=== PATIENT | male | born 1960 | race Caucasian/White ===

== ENCOUNTER 2021-10-30 05:15 | Inpatient (IN) ==
--- NOTE | 2021-10-28 09:21 | Anesthesiology Consultation ---
Date of Service October 28, 2021 Assessment & Plan (1) Encounter for pre-operative examination: - COVID screening: Per assessment on 10/22: No known COVID-19 positive contacts or current COVID-19 related symptoms. Travel screen negative. Surgeon arranging preop COVID testing (scheduled 10/28; [facility]). Awaiting results. - PCP office visit (10/21/21): "cleared for surgery" - Check BSG AM DOS Chart Review Chart Review: Acceptable Risk for Surgery (pending preop testing) and Patient NOT seen in Pre Admission Testing History Surgery Operation Date: 10/30/21 11:05 Proposed Procedures p L2-L3 Decompression Fusion, L5-S1 Revision, L3-S1 Hardware Removal - Moises Buchanan, Height/Weight Height: 6 ft 5 in Weight: 113.398 kg Allergies Allergy/AdvReac Type Severity Reaction Status Date / Time No Known Allergies Allergy Verified 10/22/21 12:40 Medications Home Medications Medication Instructions Recorded Confirmed Last Taken furosemide 20 mg tablet 20 mg PO QAM 10/22/21 10/22/21 Unknown oxycodone-acetaminophen 5 mg-325 1 tab PO Q6H PRN Pain 10/22/21 10/22/21 Unknown mg tablet (Percocet) simvastatin 10 mg tablet 10 mg PO QAM 10/22/21 10/22/21 Unknown Past Medical History Medical History (Updated 10/28/21 @ 09:17 by Marlen Kern) Diabetes Diet controlled (previously on Metformin- recently stopped and has been well controlled with diet control per pt) Fluid excess Hx- pt taking furosemide History of chronic back pain + cervicalgia Past Surgical History Surgical History History of lumbar fusion x3 History of total right knee replacement Hx of fusion of cervical spine Hx of lumbar discectomy x1 Social History Smoking Status: Never smoker Do You Dip or Chew Tobacco: No Hx Alcohol Use: No (Quit 31 years ago) Hx Substance Use: No substance use type: does not use
[2021-10-30] MEDS ORDERED: ACETAMINOPHEN 500 MG TAB PO SCH (06:00)
[2021-10-30] MEDS ORDERED: GABAPENTIN 600 MG DOSE PO SCH (06:00)
[2021-10-30] MEDS ORDERED: LR 15ML/HR IV SCH (06:00)
[2021-10-30] MEDS ORDERED: ceFAZolin 2000MG 2,000 MG/15 ML SYR IV SCH (06:00)
[2021-10-30] MEDS ORDERED: CeleBREX 200 MG CAP PO SCH (06:00)
[2021-10-30] MEDS ORDERED: MIDAZOLAM HCL 1 MG/ML 2ML VIAL ONE (07:00)
[2021-10-30] MEDS ORDERED: fentaNYL citrate 100 MCG/2 ML VIAL ONE (07:01)
[2021-10-30] MEDS ORDERED: LABETALOL HCL IV 5 MG/ML 20ML IV PRN (07:04)
[2021-10-30] MEDS ORDERED: ePHEDrine sulfate 50 MG/ML AMP IV PRN (07:04)
[2021-10-30] MEDS ORDERED: PHENYLEPHRINE 100MCG/ML 5ML SYR IV PRN (07:04)
[2021-10-30] MEDS ORDERED: HYDROmorphone INJ 1 MG/ML SYRINGE IV PRN ×2 (07:04→12:33)
[2021-10-30] MEDS ORDERED: ATROPINE SULFATE 0.1 MG/ML 10ML SYR IV PRN (07:04)
[2021-10-30] MEDS ORDERED: ONDANSETRON INJ 2 MG/ML 2 ML VIAL IV PRN ×2 (07:04→12:33)
[2021-10-30] MEDS ORDERED: MEPERIDINE HCL 25 MG/ML CARP/VIAL IV PRN (07:04)
[2021-10-30] MEDS ORDERED: KETAMINE 50 MG/5 ML SYRINGE ONE (07:08)
[2021-10-30] MEDS ORDERED: ceFAZolin 330 MG/ML 1 GM VIAL ONE (07:10)
[2021-10-30] MEDS ORDERED: BUPIVACAINE/EPINEPHRINE 0.25% 1:200,000 30 ML VIAL ONE (07:10)
--- NOTE | 2021-10-30 07:34 | History & Physical Bridge Note ---
Date of Service October 30, 2021 History & Physical Bridge Note I have examined the patient, reviewed the History & Physical and in the interval since the performance of the History & Physical I have noted the following changes of clinical significance: no changes noted
--- NOTE | 2021-10-30 07:35 | History & Physical Report ---
Date of Service October 30, 2021 Assessment & Plan (1) Neurogenic claudication due to lumbar spinal stenosis: History of Present Illness Chief Complaint: Back and leg pain Primary Care Provider: CAMILO Chen This is a 58-year-old male presents with current persistent back and leg pain after failing course of nonoperative care is here for surgical invention. Allergies Allergy/AdvReac Type Severity Reaction Status Date / Time No Known Allergies Allergy Verified 10/30/21 05:48 Home Medications Medication Instructions Recorded Confirmed Type furosemide 20 mg tablet 20 mg PO QAM 10/22/21 10/30/21 History oxycodone-acetaminophen 5 mg-325 1 tab PO Q6H PRN Pain 10/22/21 10/30/21 History mg tablet (Percocet) simvastatin 10 mg tablet 10 mg PO QAM 10/22/21 10/30/21 History Past Med/Surg History Medical History (Updated 10/30/21 @ 07:35 by Moises Buchanan DO) Diabetes Diet controlled (previously on Metformin- recently stopped and has been well controlled with diet control per pt) Dyslipidemia Fluid excess Hx- pt taking furosemide History of chronic back pain + cervicalgia Surgical History History of lumbar fusion x3 History of total right knee replacement Hx of fusion of cervical spine Hx of lumbar discectomy x1 Social History Smoking Status: Never smoker Second Hand Exposure: No; Do You Dip or Chew Tobacco: No; Tobacco Cessation Education Requested by Patient: No Hx Alcohol Use: No (Quit 31 years ago) Hx Substance Use: No Preferred Language: South African Communication Ability: Effective 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
--- NOTE | 2021-10-30 07:46 | History & Physical Bridge Note ---
Date of Service October 30, 2021 History & Physical Bridge Note I have examined the patient, reviewed the History & Physical and in the interval since the performance of the History & Physical I have noted the following changes of clinical significance: no changes noted L2-L3 decompression fusion, L5-S1 revision, hardware removal L3-S1
--- NOTE | 2021-10-30 07:47 | History & Physical Report ---
Date of Service October 30, 2021 Assessment & Plan (1) Neurogenic claudication due to lumbar spinal stenosis: Plan: L2-L3 decompression and fusion, L5-S1 revision, hardware removal L3-S1 History of Present Illness Chief Complaint: Back and bilateral leg pain Primary Care Provider: CAMILO Chen This is a 58-year-old male who presents with current persistent back and leg pain after failing course of nonoperative care is here for surgical invention. Allergies Allergy/AdvReac Type Severity Reaction Status Date / Time No Known Allergies Allergy Verified 10/30/21 05:48 Home Medications Medication Instructions Recorded Confirmed Type furosemide 20 mg tablet 20 mg PO QAM 10/22/21 10/30/21 History oxycodone-acetaminophen 5 mg-325 1 tab PO Q6H PRN Pain 10/22/21 10/30/21 History mg tablet (Percocet) simvastatin 10 mg tablet 10 mg PO QAM 10/22/21 10/30/21 History Past Med/Surg History Medical History (Updated 10/30/21 @ 07:35 by Moises Buchanan DO) Diabetes Diet controlled (previously on Metformin- recently stopped and has been well controlled with diet control per pt) Dyslipidemia Fluid excess Hx- pt taking furosemide History of chronic back pain + cervicalgia Surgical History History of lumbar fusion x3 History of total right knee replacement Hx of fusion of cervical spine Hx of lumbar discectomy x1 Social History Smoking Status: Never smoker Second Hand Exposure: No; Do You Dip or Chew Tobacco: No; Tobacco Cessation Education Requested by Patient: No Hx Alcohol Use: No (Quit 31 years ago) Hx Substance Use: No Preferred Language: Ukrainian Communication Ability: Effective 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
[2021-10-30] MEDS ORDERED: ONDANSETRON INJ 2 MG/ML 2 ML VIAL ONE (08:13)
[2021-10-30] MEDS ORDERED: DEXAMETHASONE SOD INJ 4 MG/ML VIAL ONE (08:13)
[2021-10-30] MEDS ORDERED: PROPOFOL IV EMULSION 10 MG/ML 20 ML VIAL IV ONE (08:13)
[2021-10-30] MEDS ORDERED: LIDOCAINE 2% MPF LOCAL 5 ML VIAL INFIL ONE (08:13)
[2021-10-30] MEDS ORDERED: FLOSEAL HEMOSTATIC MATRIX 10ML TOP ONE (08:37)
[2021-10-30] MEDS ORDERED: HYDROmorphone INJ 2 MG/ML SYR/VIAL ONE ×2 (09:52→09:55)
--- NOTE | 2021-10-30 10:33 | Operative Report ---
Post Operative Report Pre & Post Diagnosis Operation Date: 10/30/21 07:45 Pre-Op Diagnosis: Lumbar spinal stenosis with neurogenic claudication Post-Op Diagnosis: Same I identified the patient and participated in the time-out.: Yes Procedure Operation Date: 10/30/21 07:45 Actual Procedures #1 exploration of fusion L3-S1. #2 lumbar decompression with bilateral medial facetectomies and foraminotomies L1-L2 L2-L3. #3 placed with spinal fusion L2- L3. #4 placement posterior instrumentation with pedicle screws at L2 and connectors at L3-L4. #5 interbody fusion L2-L3. #6 placement of Spira 9 x 26 mm cage L2-L3. #7 placement locally harvested morselized autograft in the posterior gutters. #8 placement of I factor combined with V toss in the inte rbody space and posterior lateral gutters. Surgeon Moises Buchanan, Burn Nurse Kenny Henriquez Estimated Blood Loss 250 Findings Consistent with Post-Op Diagnosis Specimens None Indications This is a 60-year-old male who presents above-mentioned diagnosis of failed course of nonoperative care is here for surgical mention. Description of Procedure Patient was met with identified informed consent obtained. Patient was then taken to the operative suite underwent an patient placed in a prone position on a Richard table on top of the Sukhwinder frame. All bony prominences well-padded eyes inspected to ensure no external pressure placed upon the. This point the lumbar spine was prepped and draped in a sterile fashion. Sharp dissection with the assistance of Bovie cautery was performed down to and exposing the lamina and transverse processes of L2 and instrumentation L3-L4 L5-S1 bilaterally. I explored the fusion noting it to be mature and intact. I did attempt to remove the hardware however it was very old and these locking caps were stripped. I felt it was not safe to attempt removal without risking excessive blood loss and loss of adequate fixation for extension of the fusion. At that point went on to perform complete laminectomy of L2 partial laminectomy L1 including bilateral medial facetectomies and foraminotomies addressing severe spinal stenosis. Pedicle screws then placed in L2 and by way of connectors a golden was attached to the L3-L4 pre-existing golden. By way the transforaminal approach and left complete discectomy of L2-L3 was performed endplates curetted to subcortically bone and 9 x 26 mm spiral cage filled I factor tapped in position. The rods were then locked into final position bilaterally. The transverse processes of L2-L3 burred to subcortically bone. I factor model V toss and locally harvested morselized autograft was placed in the posterior gutters. 15 round EFRAIN drain ins erted. The incision was then closed with 1 Vicryl the fascia 2-0 Vicryl subcutaneously and 4 Monocryl for final skin closure. Steri-Strip sterile dressings placed. Patient waken taken PACU stable condition. Please note spinal cord monitoring was utilized at the procedure no changes noted. Felicia Henriquez was present at the entire surgery and while the patient positioning complex portion of the surgery and fascial closure. I attest to the content of the Intraoperative Record and any orders documented therein. Any exceptions are noted below.
[2021-10-30] MEDS ORDERED: NEOSTIGMINE METHYLSULFATE 1 MG/ML 10ML VIAL ONE (10:43)
[2021-10-30] MEDS ORDERED: GLYCOPYRROLATE 0.2 MG/ML VIAL ONE (10:43)
[2021-10-30] MEDS ORDERED: PHENYLEPHRINE 100MCG/ML 5ML SYR ONE (10:43)
--- NOTE | 2021-10-30 10:47 | Fluoroscopy Report ---
FL lumbar spine 2-3V HISTORY: 61 years-old Male L2-L3 DECOMPRESSION/FUSION, L3-S1 HARDWARE REMOVAL COMPARISON: None TECHNIQUE: 3 spot fluoroscopic images of the lumbar spine were obtained utilizing 36.0 seconds fluoro scopy time FINDINGS: Posterior interbody golden and screw fusion hardware is present at what appears to be the L2-S1 levels. Status post L2-L3 discectomy. The hardware appears to be intact. No unexpected opaque foreign bodies. Images were submitted following completion of the surgery. IMPRESSION: Fluoroscopic assistance as above. ACT 112: Negative or not required by law. The above report was generated using voice recognition software. It may contain grammatical, syntax o r spelling errors. Electronically signed by: Pedro Oliveira M.D. 10/30/2021 10:45 AM
[2021-10-30] MEDS: fentaNYL citrate 100 MCG/2 ML VIAL IV PRN ×2 (11:31→12:25)
--- NOTE | 2021-10-30 11:42 | Anesthesiology Progress Note ---
Date of Service October 30, 2021 Anesthesia Post Procedure Vital Signs Vital Signs: Temp Pulse Pulse Resp BP Pulse Ox O2 Del Method 10/30/21 11:35 84 17 131/76 96 Nasal Cannula 10/30/21 11:25 84 14 123/74 97 Nasal Cannula 10/30/21 11:15 77 17 135/80 99 Oxymask 10/30/21 11:05 78 19 136/79 99 Oxymask 10/30/21 10:59 36.4 C L 77 18 117/74 99 Oxymask 10/30/21 05:57 36.8 C 78 18 149/83 H 96 Room Air O2 Flow Rate 10/30/21 11:35 2 10/30/21 11:25 2 10/30/21 11:15 10 10/30/21 11:05 10 10/30/21 10:59 10 10/30/21 05:57 Pain Intensity Left Leg: Pain Intensity: 2 Lower Back: Pain Intensity: 2 Transfer of Care Handoff Completed per policy Notes Mental Status: alert / awake / arousable Patient Amnestic to Procedure: Yes Nausea / Vomiting: adequately controlled Pain: adequately controlled Airway Patency, RR, SpO2: stable & adequate BP & HR: stable & adequate Hydration State: stable & adequate Anesthetic Complications: no major complications apparent and Pt Satisfied with anesthetic care
[2021-10-30] MEDS ORDERED: ACETAMINOPHEN 1,000 MG/100 ML VIAL IV PRN (12:33)
[2021-10-30] MEDS ORDERED: ACETAMINOPHEN 500 MG TAB PO PRN (12:33)
[2021-10-30] MEDS ORDERED: LORazepam 0.5 MG in SYRINGE 0.25 ML IV PRN (12:33)
[2021-10-30] MEDS ORDERED: PROMETHAZINE HCL 12.5 MG in SODIUM CHLORIDE 0.9% 50 ML IV PRN (12:33)
[2021-10-30] MEDS ORDERED: diphenhydrAMINE Capsule 25 MG CAP PO PRN (12:33)
[2021-10-30] MEDS ORDERED: MAGNESIUM HYDROXIDE SUSP 30 ML UDC PO PRN (12:33)
[2021-10-30] MEDS ORDERED: LORazepam 0.5 MG TAB PO PRN (12:33)
[2021-10-30] MEDS ORDERED: FAMOTIDINE 20 MG TAB PO PRN (12:33)
[2021-10-30] MEDS ORDERED: ALUMINUM/MAGNESIUM SUSP 30 ML UDC PO PRN (12:33)
[2021-10-30] MEDS ORDERED: hydrOXYzine HCl 25 MG TAB PO PRN (12:33)
[2021-10-30] MEDS ORDERED: ONDANSETRON 4 MG OD TAB PO PRN (12:33)
[2021-10-30] MEDS ORDERED: SOD PHOSPHATE/SOD BIPHOSPHATE ENEMA 132 ML BTL PR PRN (12:33)
[2021-10-30] MEDS ORDERED: NALOXONE HCL 0.4 MG/1 ML VIAL/CARP IV PRN (12:33)
[2021-10-30] MEDS ORDERED: HYDROmorphone INJ 0.5 MG/0.5 ML SYR IV PRN (12:33)
[2021-10-30] MEDS ORDERED: METOCLOPRAMIDE HCL INJ 5 MG/ML 2 ML VIAL IV PRN (12:33)
[2021-10-30] MEDS ORDERED: traMADol HCL 50 MG TABLET PO PRN (12:33)
[2021-10-30] MEDS ORDERED: bisacodyL 10 MG SUPP PR PRN (12:33)
[2021-10-30] MEDS: LACTATED RINGER'S 1,000 ML IV SCH ×2 (12:42→20:18)
--- NOTE | 2021-10-30 15:26 | Hospitalist Consultation ---
Date of Consultation October 30, 2021 Assessment & Plan (1) Neurogenic claudication due to lumbar spinal stenosis: Neurogenic claudication with lumbar spinal stenosis S/p surgical intervention with orthospine 10/30/2021, doing well Pain control, ambulation, DVT recommendations per primary team Patient reports complete resolution of his pain symptoms following surgery Type 2 diabetes mellitus Postop BSG 212-230 - A1C pending - BSG AC/HS - BUN/CR 27.4, Na 133, Cr normal. Encourage PO - Weight based basal bolus, lantus 10. CF 40, ratio 14 -Patient has been diet controlled and doing well as outpatient, continue SSI to optimize BG control while inpatient. Recommend patient have PCP follow-up withi n 1 week with a BMP and blood sugar check, reinstitute metformin if having continued Mild Anemia - Hgb 12.7 - Microcytic - Iron studies, b12, folate pending. If ferritin and tsat low would give 300mg iron infusion x1-2 before d/c and continue on oral iron every other day Patient has a colon cancer screening kit at home would recommend completing the kit and follow-up with PCP, did discuss colorectal cancer screening. He has had no observable bleeding/melena. Repeat CBC in the morning for stability No family history of colorectal cancer HLD Continue simvastatin Tachycardia with PVCs Postoperatively had some sinus tachycardia with PVCs up to a rate of 100. This is resolved on reassessment. No acute intervention, has improved with hydration (2) Dyslipidemia: (3) Anemia: History of Present Illness Attending Physician: Moises Buchanan DO History of Present Illness 61yo M who presented for lumbar decompression/fusion. He has history of type 2 diabetes and osteoarthritis with low back pain. Was seen by orthopedics, and was recommended for lumbar decompression and fusion which she underwent 10/30/2021. We have been consulted for postoperative medical management s/p #1 exploration of fusion L3-S1. #2 lumbar decompression with bilateral me dial facetectomies and foraminotomies L1-L2 L2-L3. #3 placed with spinal fusion L2-L3. #4 placement posterior instrumentation with pedicle screws at L2 and connectors at L3-L4. #5 interbody fusion L2-L3. #6 placement of Spira 9 x 26 mm cage L2-L3. #7 placement locally harvested morselized autograft in the posterior gutters. #8 placement of I factor combined with V toss in the interbody space and posterior lateral gutters. Seen the bedside postoperatively. Patient reports he feels very well, and is happy that his shooting pain and radicular symptoms have completely resolved following surgery. Is able to wiggle his toes. Moving upper extremities equally. Wilson remains in place draining dark yellow urine. He endorses that he has had some progressive fatigue but no bleeding recently. Notes he has returned to a job and has less energy than he used to. No family history of colorectal cancer, does have a family history of prostate cancer. Denies chest pain, chest pressure, lightheadedness, dizziness, nausea, vomiting, fever, chills, sweats. Reports his diabetes has been well controlled and had stopped metformin as an outpatient. No recent highs. Doing well with no additional questions. Denies chest pain, no history of arrhythmia Medical History: Reviewed Medications: Reviewed Surgical History: Reviewed Allergies: Reviewed Social History: No tobacco use more than 20 years ago, denies alcohol use Code Status: Full code Allergies Allergy/AdvReac Type Severity Reaction Status Date / Time No Known Allergies Allergy Verified 10/30/21 05:48 Home Medications Medication Instructions Recorded Confirmed Type furosemide 20 mg tablet 20 mg PO QAM 10/22/21 10/30/21 History oxycodone-acetaminophen 5 mg-325 1 tab PO Q6H PRN Pain 10/22/21 10/30/21 History mg tablet (Percocet) simvastatin 10 mg tablet 10 mg PO QAM 10/22/21 10/30/21 History Patient History Medical History Diabetes Diet controlled (previously on Metformin- recently stopped and has been well controlled with diet control per pt) Dyslipidemia Fluid excess Hx- pt taking furosemide History of chronic back pain + cervicalgia Surgical History History of lumbar fusion x3 History of total right knee replacement Hx of fusion of cervical spine Hx of lumbar discectomy x1 Social History Smoking Status: Never smoker Second Hand Exposure: No; Do You Dip or Chew Tobacco: No; Tobacco Cessation Education Requested by Patient: No Hx Alcohol Use: No (Quit 31 years ago) Hx Substance Use: No Preferred Language: Croatian Communication Ability: Effective 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 NAD. Cooperative. Skin: Postop site C/D/I. Drain serosang. No erythema. HEENT: Atraumatic, normocephalic. PERLAA. Pulm: CTAB A&P. -wheezes, -rales, -rhonchi. Symmetrical chest rise. No increased work of breathing. No respiratory distress. Cardiac: RRR, -mrg. Radial pulses intact and symmetrical. Abdominal: Nontender, nondistended, soft. BS present. : Wilson draining dark yellow urine. Ext: Sensation to soft touch intact in hands and feet without asymmetry. Tin Stacker strength, ankle dorsi/plantarflexion intact bilaterally. PT pulse intact bilat. R knee with swelling/effusion, no tenderness/erythema. Results & Data Results & Data ([facility]) Vital Signs (Past 12 Hours) Vital Signs Temp Pulse Pulse Resp BP Pulse Ox O2 Del Method 10/30/21 14:06 36.4 C L 100 H 18 119/75 97 Room Air 10/30/21 12:35 96 H 18 141/87 H 97 Nasal Cannula 10/30/21 12:20 86 12 132/85 98 Nasal Cannula 10/30/21 12:05 88 14 138/85 97 Nasal Cannula 10/30/21 11:55 81 15 132/82 97 Nasal Cannula 10/30/21 11:45 36.2 C L 88 18 135/82 98 Nasal Cannula 10/30/21 11:35 84 17 131/76 96 Nasal Cannula 10/30/21 11:25 84 14 123/74 97 Nasal Cannula 10/30/21 11:15 77 17 135/80 99 Oxymask 10/30/21 11:05 78 19 136/79 99 Oxymask 10/30/21 10:59 36.4 C L 77 18 117/74 99 Oxymask 10/30/21 05:57 36.8 C 78 18 149/83 H 96 Room Air O2 Flow Rate 10/30/21 14:06 10/30/21 12:35 2 10/30/21 12:20 2 10/30/21 12:05 2 10/30/21 11:55 2 10/30/21 11:45 2 10/30/21 11:35 2 10/30/21 11:25 2 10/30/21 11:15 10 10/30/21 11:05 10 10/30/21 10:59 10 10/30/21 05:57 PG Care Time/CCT Total # of Minutes Spent Total Time Spent with Patient: Total time spent is greater than 50% in coordination of care (as documented) at patient's floor/unit and/or counseling patient: Coding Level of Care Code 45541 Inpt Consult Level 3 Diagnoses Neurogenic claudication due to lumbar spinal stenosis M48.062 Dyslipidemia E78.5 Anemia D64.9
[2021-10-30 16:56] LABS: Basophils # (auto) 0.01 K/uL (0-0.2); Basophils % (auto) 0.1 %; Hematocrit (blood only) 37.7 % (40.1-51.0); Hemoglobin 12.7 g/dl (14.0-18.0); Immature Granulocytes # (auto) 0.02 K/uL (0.00-0.02); Immature Granulocytes % (auto) 0.3 %; Lymphocytes # (auto) 0.59 K/uL (1.2-3.4); Lymphocytes % (auto) 8.8 %; Mean Corpuscular Hemoglobin 26.8 pg (25.0-34.0); Mean Corpuscular Hgb Conc 33.7 g/dL (32.0-36.0); Mean Corpuscular Volume 79.7 fL (80.0-100.0); Mean Platelet Volume 9.3 fL (9.4-12.4); Monocytes # (auto) 0.14 K/uL (0.24-0.82); Monocytes % (auto) 2.1 %; Neutrophils # (auto) 5.93 K/uL (1.4-6.5); Neutrophils % (auto) 88.7 %; Platelet Count 180 K/uL (130-400); RDW Coefficient of Variation 15.8 % (11.5-14.5); RDW Standard Deviation 45.5 fL (36.4-46.3); Red Blood Count 4.73 M/uL (4.63-6.08); White Blood Count 6.69 K/ul (4.8-10.8)
[2021-10-30 17:24] LABS: BUN Creatinine Ratio 27.4 (10-20); Calcium 8.7 mg/dl (8.5-10.1); Creatinine Clr Calc Pharmacy 170.2 ml/min; Est GFR (African American) 122.4 ml/min; Est GFR (Non-African American) 105.6 ml/min; Magnesium 1.8 mg/dl (1.7-2.4); Phosphorus 3.2 mg/dl (2.5-4.9); Potassium 4.4 mmol/L (3.5-5.1)
[2021-10-30] MEDS: ceFAZolin 2000MG 2,000 MG/15 ML SYR IV SCH ×2 (17:56→23:17)
[2021-10-30] MEDS ORDERED: GLUCOSE 40% GEL 15 GM TUBE PO PRN (18:15)
[2021-10-30] MEDS ORDERED: GLUCAGON FOR INJ 1 MG VIAL SQ PRN (18:15)
[2021-10-30] MEDS ORDERED: GLUCOSE 10 TAB/TUBE PO PRN (18:15)
[2021-10-30] MEDS ORDERED: CARBOHYDRATES FOR HYPOGLYCEMIA PO PRN (18:15)
[2021-10-30] MEDS ORDERED: DEXTROSE 50% 50 ML SYRINGE IV PRN (18:15)
[2021-10-30 19:29] LABS: Ferritin 66.2 ng/ml (8-388)
[2021-10-30] MEDS: oxyCODONE HCL IR 5 MG TAB (IMMEDIATE RELEASE) PO PRN (19:39)
[2021-10-30 19:43] LABS: Folate (Folic Acid) > 22.30 ng/ml (>5.38)
[2021-10-30 19:44] LABS: Vitamin B12 509 pg/ml (180-914)
[2021-10-30] MEDS: LANTUS PER UNIT CHARGE SQ SCH (20:48)
[2021-10-30] MEDS: INSULIN ASPART PER UNIT SC SCH (20:48)
[2021-10-30] MEDS: DOCUSATE SODIUM/SENNA 50/8.6MG TAB PO SCH (20:49)
[2021-10-31] MEDS: LACTATED RINGER'S 1,000 ML IV SCH (04:41)
[2021-10-31] MEDS: POLYETHYLENE (MIRALAX) 17 GM PACK PO SCH ×4 (05:22→19:40)
[2021-10-31] MEDS: oxyCODONE HCL IR 5 MG TAB (IMMEDIATE RELEASE) PO PRN ×2 (08:00→18:30)
[2021-10-31 08:39] LABS: Basophils # (auto) 0.02 K/uL (0-0.2); Basophils % (auto) 0.2 %; Hematocrit (blood only) 37.4 % (40.1-51.0); Hemoglobin 12.3 g/dl (14.0-18.0); Immature Granulocytes # (auto) 0.08 K/uL (0.00-0.02); Immature Granulocytes % (auto) 0.6 %; Lymphocytes # (auto) 1.12 K/uL (1.2-3.4); Lymphocytes % (auto) 8.7 %; Mean Corpuscular Hemoglobin 26.5 pg (25.0-34.0); Mean Corpuscular Hgb Conc 32.9 g/dL (32.0-36.0); Mean Corpuscular Volume 80.6 fL (80.0-100.0); Mean Platelet Volume 9.7 fL (9.4-12.4); Monocytes # (auto) 1.41 K/uL (0.24-0.82); Monocytes % (auto) 10.9 %; Neutrophils # (auto) 10.29 K/uL (1.4-6.5); Neutrophils % (auto) 79.6 %; Platelet Count 202 K/uL (130-400); RDW Coefficient of Variation 15.7 % (11.5-14.5); RDW Standard Deviation 45.7 fL (36.4-46.3); Red Blood Count 4.64 M/uL (4.63-6.08); White Blood Count 12.92 K/ul (4.8-10.8)
[2021-10-31 08:58] LABS: Estimated Average Glucose 151 mg/dl; Hemoglobin A1C 6.9 % (4.5-5.6)
[2021-10-31] MEDS: dexAMETHasone 6 MG in SYRINGE 0 ML IV SCH (09:02)
[2021-10-31] MEDS: SIMVASTATIN 10 MG TAB PO SCH (09:03)
[2021-10-31] MEDS: FUROSEMIDE 20 MG TAB PO SCH (09:03)
[2021-10-31] MEDS: INSULIN ASPART PER UNIT SC SCH ×4 (09:08→20:51)
[2021-10-31] MEDS: LANTUS PER UNIT CHARGE SQ SCH ×2 (09:09→20:52)
[2021-10-31 09:18] LABS: BUN Creatinine Ratio 31.6 (10-20); Calcium 8.3 mg/dl (8.5-10.1); Creatinine Clr Calc Pharmacy 185.2 ml/min; Est GFR (African American) 126.7 ml/min; Est GFR (Non-African American) 109.3 ml/min; Potassium 3.9 mmol/L (3.5-5.1)
--- NOTE | 2021-10-31 09:32 | Orthopedic Progress Note ---
Date of Service October 31, 2021 Assessment & Plan (1) Neurogenic claudication due to lumbar spinal stenosis: Plan: Patient status post lumbar decompression fusion. Plan at this time we will continue physical therapy monitor his EFRAIN operatively discharge home next few days. Admission and Anticipated Discharge Date Admission Date: October 30, 2021 Subjective Back pain controlled leg symptoms markedly improved Physical Exam Physical Exam: Patient is in bed. He sitting up. Quite comfortable. Is constricted testing. Results & Data ([facility]) Vital Signs (Past 12 Hours) Vital Signs Temp Pulse Resp BP Pulse Ox O2 Del Method 10/31/21 07:00 36.8 C 80 16 134/75 16 L 10/31/21 03:08 36.8 C 60 16 136/78 96 Room Air 10/30/21 23:34 36.9 C 86 18 123/67 94 Room Air
--- NOTE | 2021-10-31 11:14 | Hospitalist Progress Note ---
Date of Service October 31, 2021 Assessment & Plan (1) Neurogenic claudication due to lumbar spinal stenosis: Plan: Neurogenic claudication with lumbar spinal stenosis S/P surgical intervention with Dr. Buchanan on 10/30/2021, doing well post- operatively. Pain controlled Pain control, ambulation, DVT recommendations per primary team Patient reports complete resolution of his pain symptoms following surgery. Just some generalized surgical pain reported. Type 2 diabetes mellitus Postop BSG 212-230- Patient is receiving postoperative steroids - A1C 6.9 - BSG AC/HS - Will cover sugars while hospitalized due to steroids. -Patient has been diet controlled and doing well as outpatient, continue SSI to optimize BG control while inpatient. Recommend patient have PCP follow-up within 1 week with a BMP and blood sugar check, reinstitute metformin if having continued issues. Mild Anemia - Hgb 12.7 - reduced mildly to 12.3 - asymptomatic - Microcytic - Iron studies/b12/folate unremarkable. Some values are low normal but can be monitored as outpatient Patient has a colon cancer screening kit at home would recommend completing the kit and follow-up with PCP. No family history of colorectal cancer HLD Continue simvastatin Tachycardia with PVCs Postoperatively had some sinus tachycardia with PVCs up to a rate of 100. This is resolved on reassessment. No acute intervention, has improved with hydration Hospitalist service will continue to follow. (2) Dyslipidemia: (3) Anemia: Admission and Anticipated Discharge Date Admission Date: October 30, 2021 Supervising Physician Co-Signing Physician Notes PA Supervision Note: I did not personally see or examine the patient today, but I verified all bartlett points of KEYON Chaidez's assessment and plan with the following exceptions/additions: None Subjective No acute events overnight. Patient states he is doing well and pain is largely controlled. He states surgical pain is very minor compared to the chronic pain he has been experiencing. He is looking forward to working with therapy and to get stronger. He admits he waited longer than he should to seek out care for his back. We did discuss his sugars which he is getting IV steroids. His A1c is 6.9. Anticipate he can continue his dietary control of this once done with steroids.He is tolerating a diet without issue. His blood pressure is controlled. He verbalizes no other complaints. Review of Systems Review of Systems: 10 point review of systems completed. Unremarkable unless stated above. Physical Exam Physical Exam: PHYSICAL EXAM General Appearance: WDWN in NAD who is A&O x 3 HEENT: Head is normocephalic/atraumatic; Hearing grossly intact; Mucous membranes moist; Pharynx negative for exudate/lesions Neck: Supple; Trachea midline; Neg JVD Heart: RRR with no M/G/R Lungs: CTA in all lung urrutia bilaterally; Respirations unlabored; Neg accessory muscle use Abdomen: Soft, non-tender, non-distended; Positive BS x 4 quadrants Extremities: Capillary refill < 2 seconds; Neg cyanosis or edema Neurological: Speech clear; Gross motor/sensory function intact; Neg focal neurologic deficits Psychiatric: Appropriate mood/affect Skin: Normal Color; Warm/Dry Results & Data Results & Data ([facility]) Vital Signs (Past 12 Hours) Vital Signs Temp Pulse Resp BP Pulse Ox O2 Del Method 10/31/21 07:00 36.8 C 80 16 134/75 16 L 10/31/21 03:08 36.8 C 60 16 136/78 96 Room Air 10/30/21 23:34 36.9 C 86 18 123/67 94 Room Air PG Care Time/CCT Total # of Minutes Spent Total Time Spent with Patient: Total time spent is greater than 50% in coordination of care (as documented) at patient's floor/unit and/or counseling patient: Coding Level of Care Code 60282 Inpt Consult Level 2 Diagnoses Neurogenic claudication due to lumbar spinal stenosis M48.062 Dyslipidemia E78.5 Anemia D64.9
--- NOTE | 2021-10-31 11:54 | Electrocardiogram Report ---
Test Reason : Blood Pressure : / mmHG Vent. Rate : 089 BPM Atrial Rate : 089 BPM P-R Int : 192 ms QRS Dur : 084 ms QT Int : 368 ms P-R-T Axes : -06 -26 036 degrees QTc Int : 447 ms Sinus rhythm with occasional Premature ventricular complexes Otherwise normal ECG No previous ECGs available Confirmed by Tavon Li ([id number]) on 10/31/2021 11:54:08 AM Referred By: Moises Buchanan Confirmed By:Tavon Li
[2021-10-31] MEDS: DOCUSATE SODIUM/SENNA 50/8.6MG TAB PO SCH (20:52)
[2021-11-01] MEDS: oxyCODONE HCL IR 5 MG TAB (IMMEDIATE RELEASE) PO PRN ×4 (00:09→23:06)
[2021-11-01] MEDS: POLYETHYLENE (MIRALAX) 17 GM PACK PO SCH ×5 (00:09→23:06)
[2021-11-01] MEDS: FUROSEMIDE 20 MG TAB PO SCH (08:07)
[2021-11-01] MEDS: SIMVASTATIN 10 MG TAB PO SCH (08:08)
[2021-11-01] MEDS: dexAMETHasone 6 MG in SYRINGE 0 ML IV SCH (08:08)
[2021-11-01] MEDS: LANTUS PER UNIT CHARGE SQ SCH ×2 (08:47→20:41)
[2021-11-01] MEDS: INSULIN ASPART PER UNIT SC SCH ×4 (08:47→20:40)
--- NOTE | 2021-11-01 09:04 | Hospitalist Progress Note ---
Date of Service November 01, 2021 Assessment & Plan (1) Neurogenic claudication due to lumbar spinal stenosis: Plan: Neurogenic claudication with lumbar spinal stenosis S/P surgical intervention with Dr. Buchanan on 10/30/2021, doing well post- operatively. Pain controlled Pain control, ambulation, DVT recommendations per primary team Patient reports complete resolution of his pain symptoms following surgery. Just some generalized surgical pain reported. Type 2 diabetes mellitus Postop BSG [id number]- Patient is receiving postoperative steroids daily - A1C 6.9 - BSG AC/HS - Will cover sugars while hospitalized due to steroids. -Continue SSI to optimize BG control while inpatient. Recommend patient have PCP follow-up within 1 week with a BMP and blood sugar check; is on metformin as outpatient Mild Anemia - Hgb 12.7 - reduced mildly to 12.3 - asymptomatic; CBC in AM - Microcytic - Iron studies/b12/folate unremarkable. Some values are low normal but can be monitored as outpatient Patient has a colon cancer screening kit at home would recommend completing the kit and follow-up with PCP. No family history of colorectal cancer -Patient also reports H/O low platelets but cannot remember what condition he had. Reports this was a transient condition and no further issues. Possibly ITP? HLD Continue simvastatin Tachycardia with PVCs Postoperatively had some sinus tachycardia with PVCs up to a rate of 100. This remains resolved on reassessment. No acute intervention. Hospitalist service will sign off at this time. Please do not hesitate to contact us should a change in status occurs or if any questions arise. (2) Dyslipidemia: (3) Anemia: Admission and Anticipated Discharge Date Admission Date: October 30, 2021 Supervising Physician Co-Signing Physician Notes PA Supervision Note: I did not personally see or examine the patient today, but I verified all bartlett points of KEYON Chaidez's assessment and plan with the following exceptions/additions: None Subjective No acute events overnight. He reports his pain is controlled and has been ambulating the hallways. He reports his mood is so much improved not dealing with chronic pain. He expresses he is getting his reed back. He is tolerating a diet without issue. He anticipates returning home tomorrow. He has not moved his bowels since before surgery but thinks he will be able to today. No abdominal pain or nausea/vomiting. Passing flatus. He verbalizes no new complaints Review of Systems Review of Systems: 10 point review of systems completed. Unremarkable unless stated above. Physical Exam Physical Exam: PHYSICAL EXAM General Appearance: WDWN in NAD who is A&O x 3 HEENT: Head is normocephalic/atraumatic; Hearing grossly intact; Mucous membranes moist; Pharynx negative for exudate/lesions Neck: Supple; Trachea midline; Neg JVD Heart: RRR with no M/G/R Lungs: CTA in all lung urrutia bilaterally; Respirations unlabored; Neg accessory muscle use Abdomen: Soft, non-tender, non-distended; Positive BS x 4 quadrants Extremities: Capillary refill < 2 seconds; Neg cyanosis or edema Neurological: Speech clear; Gross motor/sensory function intact; Neg focal neurologic deficits Psychiatric: Appropriate mood/affect Skin: Normal Color; Warm/Dry Results & Data Results & Data ([facility]) Vital Signs (Past 12 Hours) Vital Signs Temp Pulse Resp BP Pulse Ox O2 Del Method 11/01/21 07:24 36.8 C 69 16 115/65 95 Room Air 10/31/21 21:25 36.9 C 84 16 115/69 95 Room Air Laboratory Results 11/01/21 11/01/21 10/31/21 Range/Units 12:25 08:03 20:45 POC Glucose 158 H 158 H 225 H (70-99) mg/dl 10/31/21 Range/Units 17:11 POC Glucose 206 H (70-99) mg/dl PG Care Time/CCT Total # of Minutes Spent Total Time Spent with Patient: Total time spent is greater than 50% in coordination of care (as documented) at patient's floor/unit and/or counseling patient: Coding Level of Care Code 84720 Inpt Consult Level 2 Diagnoses Neurogenic claudication due to lumbar spinal stenosis M48.062 Dyslipidemia E78.5 Anemia D64.9
--- NOTE | 2021-11-01 11:26 | Orthopedic Progress Note ---
Date of Service November 01, 2021 Assessment & Plan (1) Neurogenic claudication due to lumbar spinal stenosis: Plan: This time we will continue physical therapy monitor his EFRAIN output anticipate discharge home tomorrow. Admission and Anticipated Discharge Date Admission Date: October 30, 2021 Subjective Back pain controlled leg pain markedly improved Physical Exam Physical Exam: Patient is in the chair at the bedside. Skin strength testing. Appears comfortable. Results & Data ([facility]) Vital Signs (Past 12 Hours) Vital Signs Temp Pulse Resp BP Pulse Ox O2 Del Method 11/01/21 07:24 36.8 C 69 16 115/65 95 Room Air
[2021-11-01] MEDS: DOCUSATE SODIUM/SENNA 50/8.6MG TAB PO SCH (20:41)
[2021-11-02] MEDS: oxyCODONE HCL IR 5 MG TAB (IMMEDIATE RELEASE) PO PRN ×2 (05:52→12:29)
[2021-11-02] MEDS: POLYETHYLENE (MIRALAX) 17 GM PACK PO SCH (05:53)
[2021-11-02 08:22] LABS: Hematocrit (blood only) 35.3 % (40.1-51.0); Hemoglobin 11.6 g/dl (14.0-18.0); Mean Corpuscular Hemoglobin 26.8 pg (25.0-34.0); Mean Corpuscular Hgb Conc 32.9 g/dL (32.0-36.0); Mean Corpuscular Volume 81.5 fL (80.0-100.0); Mean Platelet Volume 10.1 fL (9.4-12.4); Platelet Count 213 K/uL (130-400); RDW Coefficient of Variation 15.5 % (11.5-14.5); RDW Standard Deviation 46.5 fL (36.4-46.3); Red Blood Count 4.33 M/uL (4.63-6.08); White Blood Count 12.43 K/ul (4.8-10.8)
[2021-11-02] MEDS: FUROSEMIDE 20 MG TAB PO SCH (08:30)
[2021-11-02] MEDS: dexAMETHasone 6 MG in SYRINGE 0 ML IV SCH (08:30)
[2021-11-02] MEDS: SIMVASTATIN 10 MG TAB PO SCH (08:31)
[2021-11-02] MEDS: LANTUS PER UNIT CHARGE SQ SCH (08:35)
[2021-11-02] MEDS: INSULIN ASPART PER UNIT SC SCH (08:35)
--- NOTE | 2021-11-02 10:24 | Discharge Summary ---
Date of Service November 02, 2021 Admission HPI Per Admitting Provider This is a 58-year-old male who presents with current persistent back and leg pain after failing course of nonoperative care is here for surgical invention. Principal Diagnosis Lumbar spinal stenosis with neurogenic claudication Discharge Data Allergies Allergy/AdvReac Type Severity Reaction Status Date / Time No Known Allergies Allergy Verified 10/30/21 05:48 Consultations 10/30/21 12:33 Consult Hospitalist Routine Procedures Performed Operation Date: 10/30/21 07:45 Actual Procedures p L2-L3 Decompression Fusion, L5-S1 Revision, Interbody Fusion L2-L3(Not Applicable) - Moises Buchanan DO Ordered Studies 10/30/21 07:00 FL lumbar spine 2-3V Routine Hospital Course (1) Neurogenic claudication due to lumbar spinal stenosis: Patient underwent lumbar decompression fusion tolerated this well was taken to orthopedic for postoperative. Postop day 1 is up and ambulating. Progressed to postop day 2 on postop and 3 EFRAIN drain decreased appropriate. Excellent strength testing. Separately discharged home. Discharge orders instructions from the chart for further review. Total Time Total Time Spent Total Time Spent (In Minutes): 20 minutes Discharge Plan Discharge Items Patient Disposition: Home - Self-Care Reason For Visit: Intervetebral Disc Disorders with Radiculopathy Discharge Diagnosis: Lumbar spinal stenosis with neurogenic claudication Activity: As commented below Non-emergency contact: Primary Care Provider Call non-emergency contact if: you have any medication questions Follow-up/Referrals: Mila Varela CRNP [Primary Care Provider] - Diet: Regular Addtl Attending Provider Instructions: ACTIVITY RECOMMENDATIONS: SELF CARE INSTRUCTIONS AFTER THORACIC/LUMBAR FUSIONS 1. You may walk to your tolerance. It is good exercise for your legs and back. Expect some back and intermittent leg aches and pains. 2. You may perform "counter-top" level activities (make a sandwich, moi with a project, etc.). 3. No bending or lifting of more than 10 pounds or back twisting of any nature (roll like a log when turning in bed). 4. You may ride in a car for 20-30 minutes at a time. No driving until after your first visit with your doctor. 5. Frequent changes of position and restricting sitting to 30 minutes at a time will help limit the amount of back spasms and stiffness you may experience. 6. You may discontinue the use of ambulatory aids (cane, crutches, etc.) once your strength and confidence allow. 7. You may route sales trainee the shower and let water strike your incision when you arrive home at least once daily. Do not take a tub bath, sit in a hot tub or go into a swimming pool until after your first recheck in the office. SPECIAL CARE INSTRUCTIONS: VERY IMPORTANT TO READ AND REVIEW A. Your surgical incision has been closed with a cosmetic suture under the skin that will dissolve in about 6 weeks. In 14 days, you can use a pair of clean scissors and cut the suture that is left outside of the skin at the ends of your incision. 1. The small skin tapes can be removed 7 days after surgery if they have not fallen off by that point. 2. You may keep the wound open to air as much as possible to promote healing after post-op day number 5 unless told otherwise by your doctor. 3. If you think the wound looks like it is becoming infected (redness or worsening drainage) and/or you are experiencing fever, chill or worsening back pain and muscle spasms, contact the office so that we may evaluate you as soon as possible. B. Complications are uncommon, but please contact us if you have any signs or symptoms of: 1. wound infection (fever higher than 102.5 degrees F, redness, separation of wound, drainage, or increasing pain from the incision) 2. blood clots in legs (pain, swelling, redness and warmth in legs) 3. urinary tract infection (fever higher than 102.5 degrees F, burning upon urination or increased frequency of urination) 4. nerve problems (inability to walk on your toes or heels, numbness, loss of bowel or bladder control) 5. any other symptoms that concern you C. Please call the office at if you have any concerns or questions about your operation or recovery. D. No smoking! Smoking drastically decreases the chance of a solid fusion. E. Do not take any anti-inflammatory medications (Indocin, Advil, Motrin, Aspirin, Naprosyn, etc.) as these may inhibit the chance of a solid fusion. Tylenol is okay to take for pain. MANAGING PAIN AFTER SPINAL SURGERY 1. Narcotic medication is intended for short-term use and will be provided for surgical pain. Surgical pain usually lasts for a period of 4-6 weeks. Narcotic medication includes Percocet, Vicodin, Darvocet, Tylenol #3 or Lortab. 2. Longer-term pain is more appropriately treated with non-narcotic medication such as Tylenol ES. 3. Muscle spasm is not appropriately treated with narcotics. Muscle relaxers such as Soma, Flexeril or Skelaxin can be used along with Tylenol ES. 4. Remember that we all live with some "aches and pains". This is not unusual or uncommon after an injury or as we get older. a. Back pain is expected and may include muscle spasms for 4 to 6 weeks after surgery. The pain should gradually improve. If the pain worsens for no apparent reason, please contact the office. b. Intermittent leg pain may also be experienced and should not be concerned about unless it worsens for no apparent reason. If so, please contact the office. 5. We will provide appropriate medication within the normal guidelines of their prescribed use. We will also be very cautious and aware of potential abuse and extended duration of patients' medication needs. a. Pain medications are for your comfort and to assist with sleep and rest so that the tissue can heal. They are not provided in order to return to normal activity and should not be used through the day. To do so or worsening pain at night can result from ongoing tissue damage and development of tolerance to the prescribed medicine. 6. Please allow 2-3 days to process refills. Prescriptions will not be mailed but must be picked up at the office. FOLLOW UP VISIT: Keep your scheduled follow-up appointment. Any questions, please call the office at . Pending Studies at Discharge: No Stand-Alone Forms: [facility], Smoking Cessation Medications and DC Order Prescriptions: New oxycodone 5 mg tablet 5 mg PO Q6H PRN (Reason: pain, severe) Qty: 30 0RF Continued simvastatin 10 mg Tablet 10 mg PO QAM oxycodone-acetaminophen [Percocet] 5-325 mg Tablet 1 tab PO Q6H PRN (Reason: Pain) furosemide 20 mg Tablet 20 mg PO QAM Discharge Orders: Discharge Order (Routine); Ordered 11/02/21 Ordered By: Moises Gomez/Other Patient Handouts: Managing Type 2 Diabetes Admission Data Admit Date/Time: 10/30/21 10:28 Attending Provider: Moises Buchanan Admit Provider: Moises Buchanan Primary Care Provider: Mila Varela Other Providers: Chapo Anguiano ; Ana Wayne
== END 2021-11-02 13:11 | disposition home or self-care (01) | DRG 455 ==
LOC: ASU 05:15 → PACUINP 10:28 → 3N 13:09
DX: E11.9 Type 2 diabetes mellitus without complications; I49.3 Ventricular premature depolarization; Z98.1 Arthrodesis status; D50.9 Iron deficiency anemia, unspecified; Z20.822 Contact with and (suspected) exposure to COVID-19; Z79.899 Other long term (current) drug therapy; M48.062 Spinal stenosis, lumbar region with neurogenic claudication; E78.5 Hyperlipidemia, unspecified; Z80.42 Family history of malignant neoplasm of prostate; R00.0 Tachycardia, unspecified